=== PATIENT | male | born 1930 | race Caucasian/White ===

== ENCOUNTER 2017-01-22 20:35 | Inpatient (IN) | payer MEDICARE, OTHER ==
[~2017-01-22] VITALS: Ht 177.8 cm; Wt 83.1 kg
[~2017-01-22 20:35] MED LIST: ACET325T14 PO; ALPR0.257 PO; AMLO2.5T PO; ASPI-515 PO; ATOR20TA9 PO; AZIT250T89 PO; CARB1TAB22 PO; CARV3.1212 PO; CEFD300C37 PO; CHOL100011 PO; CLOP75TA PO; CLOP75TA22 PO; DIGO125T PO; DIGO125T6 PO; ENAL5TAB PO; FINA5TAB4 PO; FLUD0.1T PO; HYDR453. TP; LISI5TAB7 PO; METO25TA35 PO; MIDO2.5T PO; NITR0.4T SL; NITR0.4T8 SL; POLY17PO5 PO; RANI150T4 PO; TAMS-11 PO; TAMS0.4C2 PO; TICA90TA PO; UBID50TA3 PO; VITA1CAP PO; WARF2.5T73 PO-COUM; WARF5TAB7 PO
[2017-01-22] MEDS ORDERED: SODIUM CHLORIDE FLUSH 10ML SYR IVF ONE (21:00)
[2017-01-22] MEDS ORDERED: LISI-170 PO (21:04)
[2017-01-22] MEDS ORDERED: EVEN500C3 PO (21:04)
[2017-01-22] MEDS ORDERED: UBID100C11 PO (21:04)
[2017-01-22] MEDS ORDERED: FLUD0.1T PO (21:04)
[2017-01-22] MEDS ORDERED: FINA5TAB4 PO (21:04)
[2017-01-22] MEDS ORDERED: METO1TAB18 PO (21:04)
[2017-01-22] MEDS ORDERED: SENN8.6T98 PO (21:04)
[2017-01-22] MEDS ORDERED: HYDR-3341 PO (21:04)
[2017-01-22 21:21] LABS: ASPARTATE AMINO TRANSFERASE 37 U/L (15-37); BLOOD UREA NITROGEN 22 mg/dL (7-18)
[2017-01-22 21:30] LABS: IS PT STATUS REG ER OR PRE ER? YES
[2017-01-22] MEDS ORDERED: METOPROLOL TARTRATE 50 MG TABLET PO SCH (22:30)
[2017-01-22] MEDS ORDERED: NITROGLYCERIN 0.4 MG BOTTLE (25 TABS) SL PRN (22:30)
[2017-01-22] MEDS ORDERED: ONDANSETRON 2MG/ML, 2ML IVP PRN (22:30)
[2017-01-22] MEDS ORDERED: MORPHINE SULFATE 4 MG/ML, 1ML IVPush PRN (22:30)
[2017-01-22] MEDS ORDERED: ACETAMINOPHEN 325 MG TABLET PO PRN (22:30)
[2017-01-23] MEDS: CARBIDOPA/LEVODOPA 25 MG/100 MG TABLET PO SCH ×4 (00:43→20:57)
[2017-01-23] MEDS: ATORVASTATIN 20 MG TABLET PO SCH ×2 (00:44→20:57)
[2017-01-23] MEDS: TAMSULOSIN 0.4 MG CAP.ER.24H PO SCH ×2 (00:44→20:57)
[2017-01-23 00:45] VITALS: BP 162/92
[2017-01-23] MEDS ORDERED: WARF5TAB7 PO (01:24)
[2017-01-23] MEDS ORDERED: METO25TA35 PO (01:24)
[2017-01-23 05:15] VITALS: BP 104/64
[2017-01-23 06:55] VITALS: BP 124/79
[2017-01-23 06:58] LABS: IS PT STATUS REG ER OR PRE ER? NO
[2017-01-23] MEDS ORDERED: TEMPLATE NON-FORMULARY MED. (Ubidecarenone** (Co Q-10**) 100 MG) PO SCH (09:00)
[2017-01-23] MEDS ORDERED: FLUDROCORTISONE 0.1 MG TABLET PO SCH (09:00)
[2017-01-23] MEDS: MULTIVITS,STRESS FORMULA 1 TABLET PO SCH (09:13)
[2017-01-23] MEDS: ASPIRIN 81 MG TABLET EC PO SCH (09:13)
[2017-01-23] MEDS: METOPROLOL TARTRATE 25 MG TABLET PO SCH ×2 (09:13→20:58)
[2017-01-23] MEDS: FINASTERIDE 5 MG TABLET PO SCH (09:13)
[2017-01-23] MEDS: LISINOPRIL 20 MG TABLET PO SCH (09:13)
[2017-01-23] MEDS: SENNOSIDES 8.6 MG TABLET PO SCH (09:14)
[2017-01-23] MEDS: FLUDROCORTISONE 0.1 MG TABLET PO SCH (09:14)
[2017-01-23] MEDS: SODIUM CHLORIDE FLUSH 10ML SYR IVF SCH ×2 (09:19→20:58)
[2017-01-23] MEDS: POLYETHYLENE GLYCOL 17 GM PACKET PO SCH (09:19)
[2017-01-23 12:34] LABS: IS PT STATUS REG ER OR PRE ER? NO
[2017-01-23 14:30] VITALS: BP 145/83
[2017-01-23] MEDS: WARFARIN 5 MG TABLET PO-COUM SCH (16:22)
[2017-01-23] MEDS ORDERED: WARFARIN 3 MG TABLET PO-COUM SCH (18:00)
[2017-01-23 18:40] VITALS: BP 112/68
[2017-01-23 20:36] LABS: IS PT STATUS REG ER OR PRE ER? NO
[2017-01-23] MEDS ORDERED: HYDROCHLOROTHIAZIDE 25 MG TABLET PO SCH (23:35)
[2017-01-24 00:41] LABS: IS PT STATUS REG ER OR PRE ER? NO
[2017-01-24 01:45] VITALS: BP 182/95
[2017-01-24 02:49] LABS: BLOOD UREA NITROGEN 19 mg/dL (7-18)
[2017-01-24 02:52] LABS: ASPARTATE AMINO TRANSFERASE 26 U/L (15-37)
[2017-01-24 08:00] VITALS: BP 184/98
[2017-01-24] MEDS: POLYETHYLENE GLYCOL 17 GM PACKET PO SCH (08:02)
[2017-01-24] MEDS: CARBIDOPA/LEVODOPA 25 MG/100 MG TABLET PO SCH ×2 (08:03→17:17)
[2017-01-24] MEDS: FLUDROCORTISONE 0.1 MG TABLET PO SCH (08:03)
[2017-01-24] MEDS: ASPIRIN 81 MG TABLET EC PO SCH (08:03)
[2017-01-24] MEDS: MULTIVITS,STRESS FORMULA 1 TABLET PO SCH (08:03)
[2017-01-24] MEDS: METOPROLOL TARTRATE 25 MG TABLET PO SCH (08:03)
[2017-01-24] MEDS: FINASTERIDE 5 MG TABLET PO SCH (08:04)
[2017-01-24] MEDS: SENNOSIDES 8.6 MG TABLET PO SCH (08:04)
[2017-01-24] MEDS: LISINOPRIL 20 MG TABLET PO SCH (08:05)
[2017-01-24] MEDS: SODIUM CHLORIDE FLUSH 10ML SYR IVF SCH (08:05)
[2017-01-24] MEDS ORDERED: REGADENOSON 0.4 MG/5 ML SYRINGE ONE (08:18)
[2017-01-24 14:43] VITALS: BP 163/88
[2017-01-24] MEDS: WARFARIN 5 MG TABLET PO-COUM SCH (17:17)
== END 2017-01-24 18:11 | disposition home health service (06) | DRG 313 ==
LOC: SUATTDRO 21:49 → ED 22:07 → INTOOBSV 22:44 → EDIP 22:44 → 5SO 23:17 → OBSVTOIN 01-23 15:53
DX: R07.9 Chest pain, unspecified (principal); D68.69 Other thrombophilia; E44.1 Mild protein-calorie malnutrition; E27.40 Unspecified adrenocortical insufficiency; I48.92 Unspecified atrial flutter; I50.32 Chronic diastolic (congestive) heart failure; I25.10 Atherosclerotic heart disease of native coronary artery without angina pectoris; G20 Parkinson's disease; N40.0 Benign prostatic hyperplasia without lower urinary tract symptoms; E78.5 Hyperlipidemia, unspecified; I48.2 Chronic atrial fibrillation; I11.0 Hypertensive heart disease with heart failure; I95.1 Orthostatic hypotension; Z68.26 Body mass index [BMI] 26.0-26.9, adult; Z88.5 Allergy status to narcotic agent; Z88.8 Allergy status to other drugs, medicaments and biological substances; I25.2 Old myocardial infarction; Z79.01 Long term (current) use of anticoagulants; Z86.73 Personal history of transient ischemic attack (TIA), and cerebral infarction without residual deficits; Z95.0 Presence of cardiac pacemaker; Z95.5 Presence of coronary angioplasty implant and graft; Z79.899 Other long term (current) drug therapy; T39.015A Adverse effect of aspirin, initial encounter
CPT/HCPCS: 36415; 70450; 71010; 78452; 80053; 82962; 84484; 85025; 85610; 93005; 93017; 93306; G0378; J2785; A9502; C9898